=== PATIENT | female | born 1965 | race Caucasian/White ===

== ENCOUNTER 2017-10-09 05:42 | Day surgery (SDC) | payer OTHER ==
[2017-10-09] MEDS ORDERED: FENTAnyl 50 MCG/ML VIAL (08:04)
[2017-10-09] MEDS ORDERED: MIDAZOLAM 1 MG/ML 2 ML INJ (08:04)
== END 2017-10-09 14:56 | disposition home or self-care (01) ==
LOC: GIL 05:42
DX: K21.9 Gastro-esophageal reflux disease without esophagitis (principal); K29.70 Gastritis, unspecified, without bleeding; K31.7 Polyp of stomach and duodenum; I10 Essential (primary) hypertension
CPT/HCPCS: 43239; 88305; 88312

== ENCOUNTER 2017-12-22 09:05 | Day surgery (SDC) | payer OTHER ==
[2017-12-22] MEDS ORDERED: FENTAnyl 50 MCG/ML VIAL (10:50)
[2017-12-22] MEDS ORDERED: MIDAZOLAM 1 MG/ML 2 ML INJ ×2 (10:50)
== END 2017-12-22 11:34 | disposition home or self-care (01) ==
LOC: GIL 09:05
DX: Z12.11 Encounter for screening for malignant neoplasm of colon (principal); D12.5 Benign neoplasm of sigmoid colon; K64.8 Other hemorrhoids; I10 Essential (primary) hypertension
CPT/HCPCS: 45380; 88305